=== PATIENT | male | born 1960 | race Caucasian/White ===

== ENCOUNTER 2020-06-04 18:03 | Emergency (ER) | payer OTHER ==
[~2020-06-04] VITALS: Ht 175.3 cm; Wt 95.0 kg
[2020-06-04 18:08] VITALS: BP 194/100
--- NOTE | 2020-06-04 18:11 | PHYS DOC ---
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 Patient is a , has history of CAD, hypertension and prior CABG x4. Has had URI-like symptoms for past 4 days, tested positive for COVID-19 2 days ago and has been quarantining at hotel in [place], [place]. States he was with friends today, took an unknown medication and was found to have decreased level of consciousness which concerned friends who dropped him off at local EMS location. Patient was evaluated and found to be hypoxic, 83% on room air and tachycardic. GCS was 9. He was given 2 mg Narcan with significant improvement in symptoms. He was subsequently transferred to our facility for further evaluation. On arrival, patient AO x3. Admits ongoing URI-like symptoms such as nasal congestion and rhinorrhea, has not had any fevers, shortness of breath, productive cough, abdominal pain, nausea vomit or diarrhea. States "I know I am here, I just want to go home. I [facility] all [facility] care [facility] the [facility] and it is better for me to go and see them anyways." Review of Systems: Review of Systems: Fourteen body systems of review of systems have been reviewed. See HPI for pertinent positives and negative responses, other castillo all other systems are negative, non-pertinent or non-contributory Heart Score: HEART Score for Chest Pain: HEART Score for Chest Pain Response (Comments) Value History Slighlty/Non-Suspicious 0 Age >45 - < 65 1 Risk Factors >3 Risk Factors or Hx CAD 2 Total 3 Risk Factors: Risk Factors: DM, Current or recent (<one month) smoker, HTN, HLP, family history of CAD, obesity. Risk Scores: Score 0 - 3: 2.5% MACE over next 6 weeks - Discharge Home Score 4 - 6: 20.3% MACE over next 6 weeks - Admit for Clinical Observation Score 7 - 10: 72.7% MACE over next 6 weeks - Early Invasive Strategies Physical Exam: PE: Constitutional: Pt is oriented to person, place, and time. Age-appropriate. Poor hygiene but otherwise well-appearing HEENT: Head: Normocephalic and atraumatic. TMs clear, no hemotympanum Conjunctivae and EOM are normal. Pupils are equal, round, and reactive to light. Oropharynx is clear and dry, poor dentition. No hematomas or lacerations or abrasions to face or scalp OP clear, no blood, no malocclusion, dentition intact Nares clear, no nasal septal hematoma Midface stable Neck: C-spine midline nontender, no step-offs Cardiovascular: Tachycardic, regular rhythm, no chest wall tenderness to palpation Pulmonary/Chest: Effort normal and breath sounds normal. No respiratory distress. No wheezes. CTA bilaterally Abdominal: Soft. Bowel sounds are normal. Pt exhibits no distension. There is no tenderness. Musculoskeletal: No bony tenderness to extremities, no deformities, full ROM extremities Chest wall stable Pelvis stable and non-tender No vertebral TTP and spine without stepoffs Neurological: Pt is alert and oriented to person, place, and time. Moving all extremities willfully, able to wiggle all fingers and toes Alert and oriented x 3 Motor and sensory function grossly intact Skin: Skin is warm and dry. No abrasions, no lacerations Psychiatric: Behavior is appropriate for situation Current Patient Data: Vital Signs: Vital Signs Date Time Temp Pulse Resp B/P (MAP) Pulse Ox O2 Delivery O2 Flow Rate FiO2 06/04/20 18:08 98.3 16 194/100 (131) 99 Room Air 98.3 EKG: EKG: [] Radiology/Procedures: Radiology/Procedures: [] Course & Med Decision Making: Course & Med Decision Making I immediately saw patient on ER arrival and performed comprehensive history and physical exam. Attempted to start diagnostic work-up but patient refused any thing past vital signs, did not want IV inserted or other diagnostic studies such as EKG to be performed. He voiced that he wanted to leave AMA. I had an extensive discussion with the patient regarding the risks of leaving AMA including but not limited to , permanent disability, and worsening condition. Pt acknowledged the risks and agreed to take full responsibility. Pt was A&Ox4 and had full medical decision making capacity when they signed the AMA sheet. Risks and Recommendations: The risks of refusing recommended care that were disclosed and acknowledged by the patient include loss of current lifestyle, permanent mental impairment, and . The recommended medical care being refused has been discussed with the patient and is to stay for continued monitoring, workup, and possible treatment. Discharge Care: The patient understands they are welcome to return to the hosp [facility] at any time to receive the recommended care or any other care at any time, regardless of their ability to pay for such care. Discharge instructions were provided to the patient. Dragon Disclaimer: Dragon Disclaimer: This electronic medical record was generated, in whole or in part, using a voice recognition dictation system. Departure Departure Impression: Primary Impression: Left against medical advice Additional Impressions: COVID-19 Tachycardia HTN (hypertension) Altered mental status, unspecified Disposition: AMA/ELOPED/LWBS Condition: STABLE Referrals: ARACELIS CAUSEY (PCP) Additional Instructions: You have been evaluated in the Emergency Department today. You are refusing further testing, imaging, and further admission and choosing to leave against medical advice. You were advised of your risks of leaving and understand that permanent harm, or even , can occur from failing to follow the recommendations of the physician. Please call your primary care physician first thing tomorrow morning to review your ER visit today. I advise you to schedule outpatient follow-up DANIEL whenever safe to do so after current COVID-19 infection for repeat examination Return to the Emergency Department immediately if you experience worsening or uncontrolled pain, persistent fevers, recurrent vomiting, blood in vomit, blood in stool, dark tarry stool, chest pain, shortness of breath, or for any other concerning symptoms. RONNIE ARROYO DO Jun 04, 2020 18:11
[2020-06-04] MEDS ORDERED: IV NORMAL SALINE 1000ML BAG 1,000 ML IV ONE (18:30)
== END 2020-06-04 18:43 | disposition left against medical advice (07) ==
LOC: ER 18:03
DX: U07.1 COVID-19 (principal); I11.9 Hypertensive heart disease without heart failure; R41.82 Altered mental status, unspecified; R00.0 Tachycardia, unspecified; E78.00 Pure hypercholesterolemia, unspecified; F17.200 Nicotine dependence, unspecified, uncomplicated; F15.90 Other stimulant use, unspecified, uncomplicated; Z98.890 Other specified postprocedural states
CPT/HCPCS: 99283